=== PATIENT | male | born 1980 | race Caucasian/White ===

== ENCOUNTER 2017-11-24 18:12 | Emergency (ER) | payer SELFPAY ==
[2017-11-24] MEDS ORDERED: ONDANSETRON 4 MG INJ (18:43)
== END 2017-11-24 19:38 | disposition home or self-care (01) ==
LOC: FTE 18:12
DX: S01.01XA Laceration without foreign body of scalp, initial encounter (principal); W22.8XXA Striking against or struck by other objects, initial encounter; Y92.9 Unspecified place or not applicable
CPT/HCPCS: 12001; 99283-25